=== PATIENT | male | born 1980 | race Caucasian/White ===

== ENCOUNTER 2019-05-22 17:14 | Emergency (ER) | payer BC, OTHER ==
--- NOTE | 2019-05-22 18:00 | EDM.PDOC ---
ED HPI GENERAL MEDICAL PROBLEM - General Chief Complaint: Chest Pain Stated Complaint: SPASMS Time Seen by Provider: 05/22/19 17:30 Source of Information: Reports: Patient, RN Notes Reviewed History Limitations: Reports: No Limitations - History of Present Illness INITIAL COMMENTS - FREE TEXT/NARRATIVE: Patient is a 39-year-old male who presents to the ED for evaluation of muscle spasms to his left armpit area. Patient noticed these starting at around 1600 tonight while at work, he states that this time he was just moving some light equipment in the shop. He notes that the spasms are intermittent, and would rate the pain at a 2 out of 10, he states that there is mild sharpness noted when the pain is the worst. The patient denies any sort of numbness and tingling into the extremity, knee is not complaining of any sort of neck pain or shoulder pain. The patient further denies any other sick-like symptoms, fever/chills, shortness of breath, nausea/vomiting/diarrhea. Patient does note that he his brother and uncle both had V. fib last year, that they had to be shocked for. He was worried that there may be some sort of cardiac abnormality causing the spasms. His primary care provider is Dr. Love, he states that he takes only Dupixent for his eczema, he notes that he is a tobacco chewer, roughly 1 can every 2 or 3 days, and he states he drinks 2 or 3 beers every 3 or 4 days. Left Arm Pain Score (Numeric/FACES): 2 - Related Data Allergies Allergy/AdvReac Type Severity Reaction Status Date / Time No Known Allergies Allergy Verified 05/22/19 17:38 Home Meds: Home Meds Dupilumab [Dupixent] 1 injection INJECT ASDIRECTED 05/22/19 [History] Past Medical History Dermatologic History: Reports: Eczema Social & Family History - Family History Cardiac: Reports: Other (See Below) Other Cardiac Family History: states that he had a brother and and uncle who had V-fib in 2019. ED ROS GENERAL - Review of Systems Review Of Systems: See Below Constitutional: Denies: Fever, Chills Respiratory: Denies: Shortness of Breath, Cough Cardiovascular: Reports: Chest Pain (Left upper chest spasms near armpit) GI/Abdominal: Denies: Abdominal Pain, Diarrhea, Nausea, Vomiting Musculoskeletal: Reports: Muscle Pain (spasms noted in HPI). Denies: Neck Pain , Shoulder Pain, Arm Pain Skin: Denies: Erythema ED EXAM, GENERAL - Physical Exam Exam: See Below Exam Limited By: No Limitations General Appearance: Alert, WD/WN, No Apparent Distress Throat/Mouth: Normal Inspection, Normal Lips, Normal Teeth, Normal Gums, Normal Oropharynx, Normal Voice, No Airway Compromise Head: Atraumatic, Normocephalic Neck: Normal Inspection, Supple, Non-Tender, Full Range of Motion Respiratory/Chest: No Respiratory Distress, Lungs Clear, Normal Breath Sounds, No Accessory Muscle Use, Chest Non-Tender Cardiovascular: Normal Peripheral Pulses, Regular Rate, Rhythm, No Murmur Peripheral Pulses: 3+: Radial (L), Radial (R) GI/Abdominal: Normal Bowel Sounds, Soft, Non-Tender, No Distention, No Mass Extremities: Normal Inspection, Normal Capillary Refill Neurological: Alert, Oriented, Normal Cognition, No Motor/Sensory Deficits Psychiatric: Normal Affect, Normal Mood Skin Exam: Warm, Dry, Intact, Normal Color, No Rash EKG INTERPRETATION EKG Date: 05/22/19 Time: 17:58 Rhythm: NSR Rate (Beats/Min): 90 Teller: Normal P-Wave: Present QRS: Normal ST-T: Normal QT: Normal Comparison: NA - No Prior EKG EKG Interpretation Comments: Reviewed by myself and Dr. Ortega. There are no acute ST changes noted. computer suggested Posterior infarct, but there are no obvious appreciable changes that can be noted by myself or Dr. Ortega. Course - Vital Signs Last Recorded V/S: Last Vital Signs Temp 99.3 F 05/22/19 17:37 Pulse 86 05/22/19 17:37 Resp 20 05/22/19 17:37 BP 161/99 H 05/22/19 17:37 Pulse Ox 95 05/22/19 17:37 - Orders/Labs/Meds Orders: Active Orders 24 hr Category Date Time Status EKG Documentation Completion [RC] STAT Care 05/22/19 17:46 Ordered Labs: Laboratory Tests 05/22/19 05/22/19 Range/Units 17:55 17:55 WBC 8.43 (4.23-9.07) K/mm3 RBC 5.70 (4.63-6.08) M/mm3 Hgb 16.5 (13.7-17.5) gm/dl Hct 48.7 (40.1-51.0) % MCV 85.4 (79.0-92.2) fl MCH 28.9 (25.7-32.2) pg MCHC 33.9 (32.2-35.5) g/dl RDW Std Deviation 44.3 H (35.1-43.9) fL Plt Count 332 (163-337) K/mm3 MPV 9.3 L (9.4-12.3) fl Neut % (Auto) 73.8 H (34.0-67.9) % Lymph % (Auto) 15.7 L (21.8-53.1) % Clayton % (Auto) 7.6 (5.3-12.2) % Eos % (Auto) 2.5 (0.8-7.0) Baso % (Auto) 0.2 (0.1-1.2) % Neut # (Auto) 6.22 H (1.78-5.38) K/mm3 Lymph # (Auto) 1.32 (1.32-3.57) K/mm3 Clayton # (Auto) 0.64 (0.30-0.82) K/mm3 Eos # (Auto) 0.21 (0.04-0.54) K/mm3 Baso # (Auto) 0.02 (0.01-0.08) K/mm3 Sodium 142 (136-145) mEq/L Potassium 3.9 (3.5-5.1) mEq/L Chloride 103 (98-107) mEq/L Carbon Dioxide 27 (21-32) mEq/L Anion Gap 15.9 H (5-15) BUN 6 L (7-18) mg/dL Creatinine 0.9 (0.7-1.3) mg/dL Est Cr Clr Drug Dosing 111.53 mL/min Estimated GFR (MDRD) > 60 (>60) mL/min BUN/Creatinine Ratio 6.7 L (14-18) Glucose 85 (74-106) mg/dL Calcium 9.2 (8.5-10.1) mg/dL Magnesium 2.2 (1.8-2.4) mg/dl Total Bilirubin 0.4 (0.2-1.0) mg/dL AST 23 (15-37) U/L ALT 48 (16-63) U/L Alkaline Phosphatase 111 (46-116) U/L Troponin I < 0.017 (0.00-0.056) ng/mL Total Protein 7.6 (6.4-8.2) g/dl Albumin 3.8 (3.4-5.0) g/dl Globulin 3.8 gm/dL Albumin/Globulin Ratio 1.0 (1-2) - Re-Assessments/Exams Free Text/Narrative Re-Assessment/Exam: 05/22/19 18:04 Patient presents to the ED for the evaluation of left-sided chest spasms. He was requesting some testing be done to rule out any other issues. I did order EKG, CBC, CMP, troponin and a magnesium for further management. EKG is done, and demonstrates normal sinus rhythm at a rate of 90, I did have Dr. Ortega look at this as the computer printout on the EKG suggested an acute RI, posterior infarct. There are no changes on the EKG that would suggest that at all, however there is a little baseline artifact 05/22/19 18:26 Patient labs are done, there are no abnormalities noted on the CBC, CMP shows a very mildly elevated anion gap of 15.9, no other electrolyte abnormalities appreciated. Troponin is negative. At this time it looks like it is just some sort of musculoskeletal etiology, will discharge him home with general recommendations. Departure - Departure Time of Disposition: 18:27 Disposition: Home, Self-Care 01 Condition: Fair Clinical Impression: Muscle spasm - Discharge Information *PRESCRIPTION DRUG MONITORING PROGRAM REVIEWED*: No *COPY OF PRESCRIPTION DRUG MONITORING REPORT IN PATIENT JEY: No Instructions: Muscle Cramps and Spasms, [id number] Referrals: Ren Santana MD [Primary Care Provider] - Forms: ED Department Discharge Additional Instructions: You were evaluated in the ER today regarding your left arm spasms. You had some lab work done and an EKG obtained, and everything was within normal limits, there is no cardiac component to the spasms noted at tonight's visit. The spasms you are experiencing, could be due to slight dehydration, recommend you increase your oral fluid intake, and drink some fluids like Gatorade or Powerade. Please return to the ER at any time however if your symptoms change or worsen. Sepsis Event Note - Evaluation Sepsis Screening Result: No Definite Risk - Focused Exam Vital Signs: Vital Signs Temp Pulse Resp BP Pulse Ox 05/22/19 17:37 99.3 F 86 20 161/99 H 95 Date Exam was Performed: 05/22/19 Time Exam was Performed: 18:33 - My Orders Last 24 Hours: My Active Orders 05/22/19 17:46 EKG Documentation Completion [RC] STAT - Assessment/Plan Last 24 Hours: My Active Orders 05/22/19 17:46 EKG Documentation Completion [RC] STAT
== END 2019-05-22 18:46 | disposition home or self-care (01) ==
LOC: JD.ED 17:14
DX: M62.838 Other muscle spasm (principal)
CPT/HCPCS: 36415; 80053; 83735; 84484; 85025; 93005; 93010; 99282; 99284-25